=== PATIENT | female | born 1980 | race Caucasian/White ===

== ENCOUNTER 2023-04-07 12:31 | Emergency (ER) | payer MEDICAID ==
[~2023-04-07] VITALS: Ht 152.4 cm; Wt 111.1 kg
[2023-04-07 12:42] VITALS: BP_SYST 193
--- NOTE | 2023-04-07 12:45 | NUR ---
PT TRIAGED. PLACED PT IN ER WAITING LOBBY. DR CARDONA AWARE OF PT.
--- NOTE | 2023-04-07 13:10 | NUR ---
DOCTOR AT BEDSIDE
[2023-04-07 13:36] LABS: BASOPHILS % (AUTO) 0.2 % (0.0-2.0); EOSINOPHILS # (AUTO) 0.1 K/uL (0.0-0.4); EOSINOPHILS % (AUTO) 0.7 % (0.0-4.0); HEMATOCRIT 42.4 % (36-48); HEMOGLOBIN 14.3 g/dL (12.0-16.0); LYMPHOCYTES # (AUTO) 1.9 K/uL (1.0-5.5); MEAN CORPUSCULAR HEMOGLOBIN 27 pg (27-31); MEAN CORPUSCULAR HGB CONC 34 % (32-36); MEAN CORPUSCULAR VOLUME 81 fL (79.0-98.0); MONOCYTES # (AUTO) 0.4 K/uL (0.0-1.0); MONOCYTES % (AUTO) 4.2 % (1.7-9.3); NEUTROPHILS # (AUTO) 6.8 K/uL (1.8-7.7); NEUTROPHILS % (AUTO) 73.9 % (40.0-70.0); PLATELET COUNT (AUTO) 297 K/uL (130-430); RED BLOOD CELL COUNT(AUTO) 5.23 MIL/uL (4.2-6.2); RED CELL DISTRIBUTION WIDTH 14.5 % (9.0-15.0); WHITE BLOOD COUNT (AUTO) 9.2 K/uL (4.8-10.8)
--- NOTE | 2023-04-07 13:40 | NUR ---
PATIENT C/O PAIN TO RIGHT THIRD TOE. STATES SHE STEPPED DOWN ONTO FLOOR AND A WOODEN TOOTHPICK ENTERED HER TOE FROM THE BOTTOM. VISIBLE ENTRY POINT NOTED. TOE IS EDEMATOUS AND RED WITH PURULENT DRAINAGE TO RIGHT SIDE AND BLACK SECTION ON TOP RIGHT SIDE CLOSE TO FOURTH TOE. PATIENT STATES PAIN AT 8/10. C/O NUMBNESS AND DRAINAGE X 3 DAYS, INCREASING TODAY. HAS ATTEMPTED SOAKING IN SOAP AND WATER AT HOME. MED HX HTN & EPILEPSY. NKA. VSS.
[2023-04-07 13:55] LABS: ALBUMIN 3.5 g/dL (3.4-4.8); C-REACTIVE PROTEIN QUANT 1.1 mg/dL (0-0.5); CREATININE 0.86 mg/dL (0.55-1.30); TOTAL BILIRUBIN 0.3 mg/dL (0.0-1.0)
--- NOTE | 2023-04-07 14:55 | NUR ---
Pt complains of pain to right toe. Pt medicated per MD order.
--- NOTE | 2023-04-07 14:58 | NUR ---
Pt soaking right foot in sterile water.
[2023-04-07] MEDS ORDERED: HYDROcodone/ACETAMIN 5-325 MG TAB (NORCO/ VICODIN) PO ONE (15:00)
[2023-04-07] MEDS ORDERED: IBUP-1970 PO (15:30)
[2023-04-07] MEDS ORDERED: CEPH250C PO (15:30)
[2023-04-07] MEDS ORDERED: SULF1TAB48 PO (15:30)
[2023-04-07 15:45] VITALS: BP_SYST 136
--- NOTE | 2023-04-07 15:45 | NUR ---
Patient given written and verbal discharge instructions and verbalizes understanding. ER MD discussed with patient the results and treatment provided. Patient in stable condition. ID arm band removed. IV catheter removed intact and dressing applied, no active bleeding. Rx of KEFLEX, IBUPROFEN, BACRTIM given. Patient educated on pain management & infection and to follow up with PMD. Pain Scale 5/10. Opportunity for questions provided and answered. Medication side effect fact sheet provided.
== END 2023-04-07 15:45 | disposition home or self-care (01) ==
LOC: SED 12:31
DX: L08.9 Local infection of the skin and subcutaneous tissue, unspecified (principal); M79.674 Pain in right toe(s); I10 Essential (primary) hypertension; Z79.899 Other long term (current) drug therapy
CPT/HCPCS: 36415; 80053; 83605; 85025; 86140; 99284